=== PATIENT | male | born 1955 | race Caucasian/White ===

== ENCOUNTER → 2016-03-11 | Outpatient (CLI) | payer BC ==
[~2016-03-11] MED LIST: ALMO12.5 PO; ASPI-504 PO; ENAL5TAB PO; LEVO75TA PO; NF-ESOM40C PO; OMEP20TA PO; PARO10TA24 PO; SCR1T1 PO; TEST200V4 IM
== END ==
LOC: LAB 16:00
PROVIDERS: ATTEND Nurse Practitioner Family
DX: R79.89 Other specified abnormal findings of blood chemistry (principal)
CPT/HCPCS: 36415; 84403

== ENCOUNTER 2016-04-04 07:30 | Outpatient (RCR) | payer BC, OTHER | END 2016-04-12 15:48 | disposition home or self-care (01) | LOC: PT 07:30 | PROVIDERS: ATTEND Nurse Practitioner Family | DX: M48.06 Spinal stenosis, lumbar region (principal); M25.551 Pain in right hip ==

== ENCOUNTER 2016-04-09 09:47 | Outpatient (RCR) | payer BC | END 2016-05-14 09:13 | disposition home or self-care (01) | LOC: PT 09:47 | PROVIDERS: ATTEND Family Medicine | DX: M25.512 Pain in left shoulder (principal) ==

== ENCOUNTER 2016-04-12 08:42 | Outpatient (RCR) | payer BC | END 2016-05-14 09:14 | disposition home or self-care (01) | LOC: PT 08:42 | PROVIDERS: ATTEND Nurse Practitioner Family | DX: M54.5 Low back pain (principal); M54.16 Radiculopathy, lumbar region ==